=== PATIENT | female | born 1935 | race Caucasian/White ===

== ENCOUNTER 2016-05-13 12:27 | Emergency (ER) | payer OTHER, MEDICAID ==
[~2016-05-13] VITALS: Ht 154.9 cm; Wt 76.7 kg
[2016-05-13 12:48] VITALS: BP 155/76
[2016-05-13] MEDS ORDERED: GABAPENTIN300 M3 PO (12:55)
[2016-05-13] MEDS ORDERED: ASPIRIN ADULT L81 M1 PO (12:55)
[2016-05-13] MEDS ORDERED: NORVASC10 M1 PO (12:55)
[2016-05-13] MEDS ORDERED: PRILOSEC20 MG PO (12:55)
[2016-05-13] MEDS ORDERED: LASIX20 M1 PO (12:55)
[2016-05-13] MEDS ORDERED: LOTENSIN40 M1 PO (12:55)
[2016-05-13] MEDS ORDERED: ZESTRIL20 M2 PO (12:55)
--- NOTE | 2016-05-13 14:09 | NUR ---
Patient ambulated to bed 08.
--- NOTE | 2016-05-13 14:10 | NUR ---
80/F BIB FAMILY C/O ABDOMINAL PAIN X 3 DAYS. PT STATES HAS NAUSEA BUT DENIES DIARRHEA; SKIN IS PINK/WARM/DRY; AAOX4 WITH EVEN AND UNSTEADY GAIT; AMBULATES W/ WALKER; LUNGS CLEAR BL; HR EVEN AND REGULAR; PT DENIES ANY FEVER, CP, SOB, OR COUGH AT THIS TIME; PATIENT STATES PAIN OF 10/10 AT THIS TIME; PATIENT POSITIONED FOR COMFORT; HOB ELEVATED; BEDRAILS UP X2; BED DOWN. ER MD MADE AWARE OF PT STATUS.
--- NOTE | 2016-05-13 14:29 | NUR ---
Dr. Morrison evaluating patient at bedside.
[2016-05-13] MEDS ORDERED: NACL 0.9% 1,000 ML IV SCH (14:37)
[2016-05-13] MEDS ORDERED: MORPHINE SULFATE 2 MG/ML SYR IVP ONE (14:40)
[2016-05-13] MEDS ORDERED: ONDANSETRON 4 MG/2 ML VIAL IVP ONE (14:40)
--- NOTE | 2016-05-13 15:03 | NUR ---
Patient to CT via wheelchair per tech.
--- NOTE | 2016-05-13 15:28 | NUR ---
Patient back from CT/XRAY via wheelchair per tech.
--- NOTE | 2016-05-13 16:00 | NUR ---
IV removed, catheter intact and site benign. Applied folded 4x4 gauze and tape to stop bleeding.
[2016-05-13 16:39] VITALS: BP 132/83
--- NOTE | 2016-05-13 16:39 | NUR ---
Patient discharged with v/s stable. Written and verbal after care instructions given and explained. Patient alert, oriented and verbalized understanding of instructions. Ambulatory with WALKER. All questions addressed prior to discharge. ID band removed. Patient advised to follow up with PMD. Rx of MIRALAX & COLACE given. Patient educated on indication of medication including possible reaction and side effects. Opportunity to ask questions provided and answered.
== END 2016-05-13 15:28 | disposition home or self-care (01) ==
LOC: MED 12:27
DX: K80.20 Calculus of gallbladder without cholecystitis without obstruction (principal); K59.00 Constipation, unspecified; K57.90 Diverticulosis of intestine, part unspecified, without perforation or abscess without bleeding; K44.9 Diaphragmatic hernia without obstruction or gangrene; E11.9 Type 2 diabetes mellitus without complications; I12.9 Hypertensive chronic kidney disease with stage 1 through stage 4 chronic kidney disease, or unspecified chronic kidney disease; N18.9 Chronic kidney disease, unspecified; K21.9 Gastro-esophageal reflux disease without esophagitis; Z79.82 Long term (current) use of aspirin; Z79.899 Other long term (current) drug therapy
CPT/HCPCS: 36415; 71010; 74176; 80053; 81001; 82150; 82948; 83605; 83690; 84484; 85025; 85610; 85730; 87040; 87086; 93005; 96361; 96374; 96375; 99285; J2270; J2405; J7030

== ENCOUNTER 2016-10-27 17:15 | Inpatient (IN) | payer OTHER, MEDICAID ==
[~2016-10-27] VITALS: Ht 152.4 cm; Wt 90.7 kg
[~2016-10-27 17:15] MED LIST: AMLO10TA1 PO; ASPI81CT27 PO; BENA40TA PO; FURO-572 PO; GABA-638 PO; LISI20TA21 PO; OMEP20EC4 PO
[2016-10-27 17:35] VITALS: BP 134/69
[2016-10-27] MEDS ORDERED: OMEP20TC10 PO (17:47)
[2016-10-27] MEDS ORDERED: DOCU-67 PO (17:47)
[2016-10-27] MEDS ORDERED: FERR325E14 PO (17:47)
[2016-10-27] MEDS ORDERED: ATEN50TA8 PO (17:47)
--- NOTE | 2016-10-27 17:51 | NUR ---
GLUCOMETER NOT FUNCTIONING
--- NOTE | 2016-10-27 18:30 | NUR ---
PT WHEELCHAIR ASSISTED TO BED 3.
--- NOTE | 2016-10-27 18:34 | NUR ---
PATIENT PRESENTS TO ED POST FALL AT HOME THIS MORNING. ECCHYMOSIS AND SWELLING NOTED TO RIGHT SHOULDER. PER PT'S DAUGHTER, "SHE WAS GOING TO THE BATHROOM WITH HER WALKER AND SLIPPED." PT'S DAUGHTER STATES THAT HER DAUGHTER FOUND HER ON THE FLOOR BUT NO ONE WITNESSED THE FALL. PT C/O PAIN TO RIGHT SHOULER; DENIES N/V/D; SKIN IS PINK/WARM/DRY; AAOX4 WITH EVEN AND STEADY GAIT; LUNGS CLEAR BL; HR EVEN AND REGULAR; PT DENIES ANY FEVER, CP, SOB, OR COUGH AT THIS TIME; PATIENT STATES PAIN OF 10/10 AT THIS TIME; VSS; PATIENT POSITIONED FOR COMFORT; HOB ELEVATED; BEDRAILS UP X2; BED DOWN. ER MD MADE AWARE OF PT STATUS.
--- NOTE | 2016-10-27 18:46 | NUR ---
DR. COREA PRESENT AT BEDSIDE.
[2016-10-27] MEDS ORDERED: NACL 0.9% 1,000 ML IV ONE ×2 (18:53→19:27)
--- NOTE | 2016-10-27 19:27 | NUR ---
Dr. Eaton evaluating patient at bedside.
--- NOTE | 2016-10-27 19:29 | NUR ---
ENDORSED CARE TO BEVERLY OVIEDO. PT IN STABLE CONDITION.
[2016-10-27] MEDS ORDERED: MORPHINE SULFATE 4 MG/ML SYR IVP ONE (19:30)
[2016-10-27] MEDS ORDERED: ONDANSETRON 4 MG/2 ML VIAL IVP ONE (19:30)
--- NOTE | 2016-10-27 19:31 | NUR ---
FAMILY AT BEDSIDE. PT RESTING IN BED, BP ELEVATED, MED HX OF HTN. PT C/O PAIN 11/15 ON R SHOULDER. ER MD NOTIFIED.
[2016-10-27 20:14] LABS: BASOPHILS # (AUTO) 0.1 K/uL (0.00-0.22); BASOPHILS % (AUTO) 1.1 % (0.0-2.0); EOSINOPHILS # (AUTO) 0.3 K/uL (0-0.4); EOSINOPHILS % (AUTO) 2.3 % (0.0-4.0); HEMATOCRIT 33.5 % (36-48); LYMPHOCYTES # (AUTO) 1.6 K/uL (2.5-16.5); LYMPHOCYTES % (AUTO) 13.5 % (20.5-51.1); MEAN CORPUSCULAR HEMOGLOBIN 31 pg (27-31); MEAN CORPUSCULAR HGB CONC 33 g/dL (33-37); MEAN CORPUSCULAR VOLUME 93 fL (80-94); MONOCYTES # (AUTO) 0.9 K/uL (0.8-1.0); MONOCYTES % (AUTO) 7.1 % (1.7-9.3); NEUTROPHILS # (AUTO) 9.1 K/uL (1.8-7.7); PLATELET COUNT (AUTO) 297 K/uL (140-450); RED BLOOD CELL COUNT(AUTO) 3.59 MIL/uL (4.20-5.40); RED CELL DISTRIBUTION WIDTH 13.6 % (11.6-13.7)
[2016-10-27 20:28] LABS: ALBUMIN 2.1 g/dL (3.4-5.0); AMYLASE 23 U/L (25-115); ANION GAP 12.3 (8-16); ASPARTATE AMINOTRANSFERASE 45 U/L (15-37); CARBON DIOXIDE 26.1 mmol/L (21-32); CHLORIDE 114 mmol/L (98-107); GLUCOSE 99 mg/dL (74-106); LIPASE 81 U/L (73-393); POTASSIUM 5.4 mmol/L (3.5-5.1); PROTHROMBIN TIME 9.9 secs (10.8-13.4); SODIUM SERUM 147 mmol/L (136-145); TOTAL BILIRUBIN 0.6 mg/dL (0.0-1.0)
[2016-10-27 20:34] LABS: CREATININE 4.7 mg/dL (0.6-1.3); UREA NITROGEN, BLOOD 75 mg/dL (7-18)
[2016-10-27] MEDS ORDERED: SODIUM POLYSTYRENE 15 GM/60 ML UDBTL PO ONE (20:50)
[2016-10-27] MEDS ORDERED: cefTRIAXone 1,000 MG VIAL ONE (21:03)
[2016-10-27] MEDS ORDERED: ONDANSETRON 4 MG/2 ML VIAL IVP PRN (21:10)
--- NOTE | 2016-10-27 21:19 | NUR ---
Patient will be admitted to care of [facility]. Admited to TELEMETRY. Will go to room 110 B. Belongings list completed. Report to BEVERLY SERRANO..
[2016-10-27 21:20] LABS: APPEARANCE,URINE HAZY (CLEAR); BILIRUBIN,URINE NEGATIVE (NEGATIVE); BLOOD, URINE TRACE-I (NEGATIVE); COLOR,URINE YELLOW (YELLOW); LEUKOCYTE ESTERASE ,URINE NEGATIVE (NEGATIVE); NITRITE, URINE POSITIVE (NEGATIVE); UGLUCOSE NEGATIVE (NEGATIVE)
[2016-10-27 21:24] LABS: RBC,URINE 0-5 /HPF (0-5); WBC,URINE 20-40 /HPF (0-5)
--- NOTE | 2016-10-27 21:33 | NUR ---
PT TRANSFERED TO FLOOR VIA GURNEY ACCOMPANIED BY RN AND EMT.
--- NOTE | 2016-10-27 22:00 | NUR ---
PATIENT ADMITTED TO THE UNIT FROM ED VIA GURNEY. PATIENT TRANSFERRED FROM RFOWLER TO BED WITH FULL ASSIST. PATIENT IS AAOX2, UKRAINIAN SPEAKER, ON O2 3.5L VIA NC. IV TO RIGHT AC PATENT AND INTACT. SKIN INTACT WITH BRUISING TO RIGHT UPPER ARM S/P FALL. RIGHT ARM IN IMMOBILIZER. PATIENT APPEARS TO BE IN MILD PAIN. STATED THE MORPHINE IN THE ER HELPED HER PAIN. NOTED BILATERAL LOWER EXTREMITY EDEMA, NON PITTING. PATIENT STATED DISCOMFORT IN HER KNEES. ORIENTED PATIENT TO ROOM AND SURROUNDINGS, DISCUSSED PLAN OF CARE WITH PATIENT, PT VERBALIZED UNDERSTANDING. SAFETY MEASURES CHECKED, BED ALARM ON, FALL PRECAUTIONS IN PLACE, SIGNS POSTED, WRIST BANDS ON, CALL LIGHT WITHIN REACH. WILL CONTINUE TO MONITOR.
[2016-10-27] MEDS ORDERED: MECLIZINE 25 MG TAB PO PRN (22:15)
[2016-10-27] MEDS ORDERED: DEXTROSE 50% 50 ML SYR IVP PRN (22:15)
[2016-10-27] MEDS ORDERED: LACTULOSE 20 GM/30 ML UDC PO SCH (22:15)
[2016-10-27] MEDS: NACL 0.9% 1,000 ML IV SCH (22:25)
[2016-10-27 22:49] LABS: CHOL/HDL RATIO 3.7 (1-4.5); FREE T4 (FREE THYROXINE) 0.75 ng/dL (0.76-1.46); MAGNESIUM 2.4 mg/dL (1.8-2.4); PHOSPHORUS 4.9 mg/dL (2.5-4.9); THYROID STIMULATING HORMONE 6.48 uIU/mL (0.34-3.74)
--- NOTE | 2016-10-27 23:42 | NUR ---
PT OFF UNIT TO CT
[2016-10-28] VITALS: BP 155/88
[2016-10-28 00:36] LABS: ANION GAP 13.9 (8-16); CHLORIDE 115 mmol/L (98-107); GLUCOSE 114 mg/dL (74-106); POTASSIUM 4.9 mmol/L (3.5-5.1); SODIUM SERUM 148 mmol/L (136-145)
[2016-10-28 00:47] LABS: CREATININE 4.4 mg/dL (0.6-1.3); UREA NITROGEN, BLOOD 70 mg/dL (7-18)
--- NOTE | 2016-10-28 01:09 | NUR ---
PT SLEEPING, NO SIGN OF DISTRESS AT THIS TIME, CALL LIGHT WITHIN REACH. WILL CONTINUE TO MONITOR.
--- NOTE | 2016-10-28 03:30 | NUR ---
PATIENT SLEEPING COMFORTABLE, NO SOB OR SIGN OF DISTRESS AT THIS TIME, CALL LIGHT WITHIN REACH. WILL CONTINUE TO MONITOR.
[2016-10-28 04:00] VITALS: BP 142/73
--- NOTE | 2016-10-28 05:00 | NUR ---
PATIENT HAD LARGE SOFT BM. CLEANED PATIENT, TURNED AND REPOSITIONED. NO SIGN OF DISTRESS, CALL LIGHT WITHIN REACH. WILL CONTINUE TO MONITOR.
--- NOTE | 2016-10-28 05:19 | NUR ---
SCDS APPLIED TO PATIENT
--- NOTE | 2016-10-28 07:19 | NUR ---
ENDORSED PATIENT TO DAY RN AT BEDSIDE, PATIENT IN STABLE CONDITION
--- NOTE | 2016-10-28 07:20 | NUR ---
RECEIVED PT FROM MAGGIE PAUL AT BEDSIDE. PT IS SLEEPING. NC 3L. PT HAS IV ON L AC 20 G RUNNING NS@100. NO DISTRESS NOTED. PT HAS R ARM IMMOBILIZER. CALL LIGHT WITHIN REACH. WILL CONTINUE TO MONITOR.
[2016-10-28 08:00] VITALS: BP 141/78
[2016-10-28] MEDS: BLOOD GLUCOSE MONITORING 1 DEV DEV FS SCH ×4 (08:16→21:10)
[2016-10-28] MEDS: LACTOBACILLUS RHAMNOSUS GG 1 EACH CAP PO SCH (08:20)
[2016-10-28] MEDS: ATENOLOL 50 MG TAB PO SCH ×2 (08:21→21:11)
[2016-10-28] MEDS: FERROUS SULFATE 325 MG TABEC PO SCH (08:21)
[2016-10-28] MEDS: GABAPENTIN 100 MG CAP PO SCH (08:21)
[2016-10-28] MEDS: amLODIPine 5 MG TAB PO SCH (08:21)
[2016-10-28] MEDS: DOCUSATE SODIUM 100 MG GELCAP PO SCH ×2 (08:22→21:11)
--- NOTE | 2016-10-28 08:30 | NUR ---
US TECH AT BEDSIDE PERFORMING TEST. PT TOLERATING WELL. CALL LIGHT WITHIN REACH. WILL CONTINUE TO MONITOR.
[2016-10-28] MEDS: NACL 0.9% 1,000 ML IV SCH ×2 (08:40→19:30)
[2016-10-28] MEDS ORDERED: ASPIRIN 81 MG TAB.CHEW PO SCH (09:00)
[2016-10-28] MEDS ORDERED: PANTOPRAZOLE 40 MG INJ VIAL IVP SCH (09:00)
[2016-10-28] MEDS ORDERED: FUROSEMIDE 20 MG TAB PO SCH (09:00)
[2016-10-28] MEDS ORDERED: ECOTRIN 81 MG TABEC PO SCH (09:00)
[2016-10-28] MEDS ORDERED: DOCUSATE SODIUM 100 MG GELCAP PO SCH (09:00)
--- NOTE | 2016-10-28 09:03 | NUR ---
PATIENT HAS BEEN SCREENED AND CATEGORIZED HIGH NUTRITION RISK. PATIENT WILL BE SEEN WITHIN 1-2 DAYS OF ADMISSION. 10/28/16-10/29/[address]
--- NOTE | 2016-10-28 09:10 | NUR ---
PULLED PT UP IN BED. PT TOLERATED MORNING MEDS WELL. MANAGER HIGHWAY HELPED PT TO EAT. CALL LIGHT WITHIN REACH. WILL CONTINUE TO MONITOR.
--- NOTE | 2016-10-28 10:44 | NUR ---
PT RESTING COMFORTABLY IN BED. NO DISTRESS NOTED. CALL LIGHT WITHIN REACH. WILL CONTINUE TO MONITOR.
[2016-10-28 11:08] LABS: HEMATOCRIT 28.6 % (36-48); HEMOGLOBIN 9.1 g/dL (12.0-16.0); MEAN CORPUSCULAR HEMOGLOBIN 30 pg (27-31); MEAN CORPUSCULAR HGB CONC 32 g/dL (33-37); MEAN CORPUSCULAR VOLUME 94 fL (80-94); PLATELET COUNT (AUTO) 200 K/uL (140-450); RED BLOOD CELL COUNT(AUTO) 3.03 MIL/uL (4.20-5.40); RED CELL DISTRIBUTION WIDTH 13.4 % (11.6-13.7); WHITE BLOOD COUNT (AUTO) 13.2 K/uL (4.8-10.8)
[2016-10-28 11:17] LABS: ANION GAP 12.5 (8-16); CARBON DIOXIDE 23.3 mmol/L (21-32); CHLORIDE 117 mmol/L (98-107); GLUCOSE 160 mg/dL (74-106); POTASSIUM 4.8 mmol/L (3.5-5.1); SODIUM SERUM 148 mmol/L (136-145)
[2016-10-28 11:20] LABS: EOSINOPHILS % (MANUAL) 2 % (0-4); LYMPHOCYTES % (MANUAL) 8 % (20-46); MONOCYTES % (MANUAL) 4 % (5-12); UREA NITROGEN, BLOOD 65 mg/dL (7-18)
[2016-10-28 11:21] LABS: CREATININE 4.1 mg/dL (0.6-1.3)
[2016-10-28 11:45] LABS: MAGNESIUM 2.2 mg/dL (1.8-2.4); PHOSPHORUS 5.5 mg/dL (2.5-4.9)
[2016-10-28 12:00] VITALS: BP 143/57
[2016-10-28] MEDS: INSULIN LISPRO SLIDING SCALE 100 UNITS/ML VIAL SUBQ PRN (12:09)
--- NOTE | 2016-10-28 12:56 | NUR ---
ANSWERED FAMILY'S QUESTION AT BEDSIDE. PT IN STABLE CONDITION. CALL LIGHT WITHIN REACH. WILL CONTINUE TO MONITOR.
--- NOTE | 2016-10-28 14:21 | NUR ---
FAMILY AT BEDSIDE. PT IN STABLE CONDITION. CALL LIGHT WITHIN REACH. WILL CONTINUE TO MONITOR.
--- NOTE | 2016-10-28 14:40 | NUR ---
10/28/16 RD INITIAL ASSESSMENT COMPLETED PLEASE REFER TO NUTRITION ASSESSMENT UNDER CARE ACTIVITY FOR ESTIMATED NUTRITIONAL NEEDS. 1. CONTINUE 60 GM CONSISTENT CARBOHYDRATE DIET 2. RD TO FOLLOW UP WITHIN 3-5 DAYS; MODERATE RISK WENDY LAM RD
[2016-10-28] MEDS: ACETAMINOPHEN 325 MG TAB PO PRN (15:44)
[2016-10-28 16:00] VITALS: BP 143/67
--- NOTE | 2016-10-28 16:00 | NUR ---
VS TAKEN. NO DISTRESS NOTED IN PT. CALL LIGHT WITHIN REACH. WILL CONTINUE TO MONITOR.
--- NOTE | 2016-10-28 17:30 | NUR ---
FAMILY AT BEDSIDE. NO DISTRESS NOTED IN PT. CALL LIGHT WITHIN REACH. WILL CONTINUE TO MONITOR.
--- NOTE | 2016-10-28 19:16 | NUR ---
ENDORSED CARE OF PT TO ALFONSO RN AT BEDSIDE. PT IN STABLE CONDITION.
--- NOTE | 2016-10-28 19:20 | NUR ---
RECEIVED REPORT FROM AM NURSE. PT IS STABLE, SLEEPING AT THIS TIME WITH FAMILY AT BEDSIDE. TELE PT, ROOM AIR. IV ACCESS ON LEFT AC 20G RUNNING FLUIDS AT 100ML/HR. ARM SLING ON RIGHT ARM. PLAN OF CARE DISCUSSED WITH FAMILY AND PT, BOTH VERBALIZED UNDERSTANDING. BED ON LOW POSITION, CALL LIGHT WITHIN REACH. WILL CONTINUE TO MONITOR. Addendum: 10/28/16 at 2244 by Jennifer Gross RN PT IS ON 02 3L NC
--- NOTE | 2016-10-28 19:50 | NUR ---
US ABDOMEN DONE AT BEDSIDE. WILL FOLLOW UP RESULT.
[2016-10-28 20:00] VITALS: BP 120/53
--- NOTE | 2016-10-28 22:00 | NUR ---
VOIDED WITH MODERATE AMOUNT. CLEANED AND KEPT DRY. REPOSITIONED FOR COMFORT. WILL CONTINUE TO MONITOR.
[2016-10-29 00:10] VITALS: BP 147/64
[2016-10-29] MEDS: ACETAMINOPHEN 325 MG TAB PO PRN ×2 (00:26→16:08)
--- NOTE | 2016-10-29 00:26 | NUR ---
TEMP 100.5 COOLING MEASURES DONE. TYLENOL 650 MG PO GIVEN. WILL CONTINUE TO MONITOR.
[2016-10-29] MEDS: NACL 0.9% 1,000 ML IV SCH ×2 (00:31→12:19)
--- NOTE | 2016-10-29 01:30 | NUR ---
PT SLEEPING . LATEST TEMP 98.8 WILL CONTINUE TO MONITOR.
--- NOTE | 2016-10-29 02:22 | NUR ---
MADE ROUNDS. PT IS SLEEPING SHOWING NO S/S OF DISCOMFORT. WILL CONTINUE O MONITOR.
[2016-10-29 03:35] VITALS: BP 140/53
--- NOTE | 2016-10-29 04:59 | NUR ---
MADE ROUNDS. PT IS SLEEPING, SHOWING NO S/S OF DISCOMFORT. WILL CONTINUE TO MONITOR.
[2016-10-29 07:15] LABS: BASOPHILS # (AUTO) 0.1 K/uL (0.00-0.22); BASOPHILS % (AUTO) 1.1 % (0.0-2.0); EOSINOPHILS # (AUTO) 0.4 K/uL (0-0.4); EOSINOPHILS % (AUTO) 3.8 % (0.0-4.0); HEMATOCRIT 25.8 % (36-48); HEMOGLOBIN 8.5 g/dL (12.0-16.0); LYMPHOCYTES % (AUTO) 17.5 % (20.5-51.1); MEAN CORPUSCULAR HEMOGLOBIN 31 pg (27-31); MEAN CORPUSCULAR HGB CONC 33 g/dL (33-37); MEAN CORPUSCULAR VOLUME 94 fL (80-94); MONOCYTES # (AUTO) 1.1 K/uL (0.8-1.0); MONOCYTES % (AUTO) 9.9 % (1.7-9.3); NEUTROPHILS % (AUTO) 67.7 % (42.2-75.2); PLATELET COUNT (AUTO) 208 K/uL (140-450); RED BLOOD CELL COUNT(AUTO) 2.74 MIL/uL (4.20-5.40); RED CELL DISTRIBUTION WIDTH 13.3 % (11.6-13.7)
--- NOTE | 2016-10-29 07:22 | NUR ---
RECEIVED PT FROM ALFONSO RN AT BEDSIDE. PT IS A&OX2. PT HAS IV ON L WRIST 22 G RUNNING NS@100. PT HAS R HUMERAL NECK FRACTURE, R ARM IMMOBILIZER IN PLACE. SCDS IN PLACE. NO DISTRESS NOTED IN PT. CALL LIGHT WITHIN REACH. WILL CONTINUE TO MONITOR.
[2016-10-29] MEDS: BLOOD GLUCOSE MONITORING 1 DEV DEV FS SCH ×4 (07:30→21:00)
[2016-10-29 07:49] LABS: WHITE BLOOD COUNT (AUTO) 11.6 K/uL (4.8-10.8)
[2016-10-29 08:00] VITALS: BP 148/67
[2016-10-29 08:01] LABS: MAGNESIUM 1.7 mg/dL (1.8-2.4)
[2016-10-29] MEDS: ATORVASTATIN 20 MG TAB PO SCH (08:37)
[2016-10-29] MEDS: LACTOBACILLUS RHAMNOSUS GG 1 EACH CAP PO SCH (08:37)
[2016-10-29] MEDS: GABAPENTIN 100 MG CAP PO SCH (08:37)
[2016-10-29] MEDS: FERROUS SULFATE 325 MG TABEC PO SCH (08:37)
[2016-10-29] MEDS: PANTOPRAZOLE 40 MG TABEC PO SCH (08:38)
[2016-10-29] MEDS: ATENOLOL 50 MG TAB PO SCH ×2 (08:38→22:22)
[2016-10-29] MEDS: ECOTRIN 81 MG TABEC PO SCH (08:38)
[2016-10-29] MEDS: DOCUSATE SODIUM 100 MG GELCAP PO SCH ×2 (08:38→22:23)
[2016-10-29] MEDS: amLODIPine 5 MG TAB PO SCH (08:38)
[2016-10-29] MEDS ORDERED: CALCIUM ACETATE 667 MG TAB PO SCH (09:18)
[2016-10-29 09:32] LABS: ANION GAP 10.8 (8-16); CARBON DIOXIDE 22.1 mmol/L (21-32); CHLORIDE 114 mmol/L (98-107); CREATININE 3.8 mg/dL (0.6-1.3); GLUCOSE 107 mg/dL (74-106); POTASSIUM 3.9 mmol/L (3.5-5.1); SODIUM SERUM 143 mmol/L (136-145); UREA NITROGEN, BLOOD 60 mg/dL (7-18)
[2016-10-29] MEDS: CLINICAL MONITORING MC SCH (09:38)
[2016-10-29] MEDS: HYDROcodone/APAP 7.5/325 MG 1 TAB PO PRN (09:53)
--- NOTE | 2016-10-29 09:53 | NUR ---
PHYSICAL THERAPY WORKED WITH PT. PUT PT BACK TO BED. PT C/O R SHOULDER PAIN. MEDICATED. TOLERATED WELL. CALL LIGHT WITHIN REACH. WILL CONTINUE TO MONITOR.
[2016-10-29 10:17] LABS: FERRITIN 114 ng/mL (15-150); FOLIC ACID > 20.00 ng/mL (>3.0)
--- NOTE | 2016-10-29 11:00 | NUR ---
SPOKE TO DR. WAN REGARDING MAG 1.7.
[2016-10-29 11:11] LABS: TRANSFERRIN 161 mg/dL (200-370)
[2016-10-29 12:00] VITALS: BP 144/49
[2016-10-29] MEDS ORDERED: MAGNESIUM OXIDE 400 MG TAB PO SCH (12:45)
--- NOTE | 2016-10-29 13:00 | NUR ---
PT PULLED OUT OLD IV, CANNULA INTACT. REINSERTED NEW IV 22 G ON L WRIST. PT TOLERATED WELL. CALL LIGHT WITHIN REACH. WILL CONTINUE TO MONITOR.
--- NOTE | 2016-10-29 15:30 | NUR ---
NO DISTRESS NOTED AT THIS TIME. VS STABLE. WILL MONITOR CLOSELY. CALL LIGHT WITHIN REACH.
[2016-10-29 16:00] VITALS: BP 147/57
--- NOTE | 2016-10-29 16:08 | NUR ---
PAIN REQUESTED TYLENOL FOR PAIN. ADMINISTERED. TOLERATED WELL. CALL LIGHT WITHIN REACH. WILL CONTINUE TO MONITOR.
--- NOTE | 2016-10-29 17:00 | NUR ---
PT REFUSED US KIDNEY.
--- NOTE | 2016-10-29 18:00 | NUR ---
I&O INTAKE ORAL: 1200 ML INTAKE IV: 800 ML VOID: 2X BM: NONE
--- NOTE | 2016-10-29 19:20 | NUR ---
ENDORSED CARE OF PT TO FRONT LOADER RESIDENTIAL DRIVER NURSE AT BEDSIDE. PT IN STABLE CONDITION.
--- NOTE | 2016-10-29 19:25 | NUR ---
RECEIVED PT FROM RAFFAELE PAUL PT IS AAOX2 GRENADIAN SPEAKER IV ON LEFT WRIST INSUING WELL ON TELEMETRY SR BBB RT UPPER ARM TUBEROSITY FRACTURE REMAIN STABLE AT THIS TIME DENIES ANY PAIN INITIAL ASSESSMENT DONE
[2016-10-29 20:00] VITALS: BP 142/55
--- NOTE | 2016-10-29 21:30 | NUR ---
BLOOD SUGAR TEST 142
--- NOTE | 2016-10-29 22:00 | NUR ---
PT IS ASSISTED WITH BED WHITMAN VOIDING WELL ON TELE SR BBB
[2016-10-30] VITALS: BP 150/66
--- NOTE | 2016-10-30 01:20 | NUR ---
PT SLEEPING NOT DISTRESS NOTED IV ON LEFT WRIST INFUSING WELL
[2016-10-30 04:00] VITALS: BP 150/81
--- NOTE | 2016-10-30 04:00 | NUR ---
sponge bath given linen changed repositioned q2h on telemetry sr bbb
[2016-10-30 05:59] LABS: BASOPHILS # (AUTO) 0.1 K/uL (0.00-0.22); BASOPHILS % (AUTO) 0.8 % (0.0-2.0); EOSINOPHILS # (AUTO) 0.6 K/uL (0-0.4); EOSINOPHILS % (AUTO) 4.5 % (0.0-4.0); HEMOGLOBIN 9.1 g/dL (12.0-16.0); LYMPHOCYTES # (AUTO) 1.6 K/uL (2.5-16.5); LYMPHOCYTES % (AUTO) 12.4 % (20.5-51.1); MEAN CORPUSCULAR HEMOGLOBIN 30 pg (27-31); MEAN CORPUSCULAR HGB CONC 32 g/dL (33-37); MEAN CORPUSCULAR VOLUME 94 fL (80-94); MONOCYTES # (AUTO) 0.9 K/uL (0.8-1.0); MONOCYTES % (AUTO) 7.2 % (1.7-9.3); NEUTROPHILS # (AUTO) 9.4 K/uL (1.8-7.7); NEUTROPHILS % (AUTO) 75.1 % (42.2-75.2); PLATELET COUNT (AUTO) 237 K/uL (140-450); RED CELL DISTRIBUTION WIDTH 12.8 % (11.6-13.7); WHITE BLOOD COUNT (AUTO) 12.6 K/uL (4.8-10.8)
[2016-10-30] MEDS: NACL 0.9% 1,000 ML IV SCH ×3 (06:07→16:05)
[2016-10-30 06:14] LABS: ANION GAP 14.7 (8-16); CARBON DIOXIDE 20.5 mmol/L (21-32); CHLORIDE 114 mmol/L (98-107); CREATININE 3.3 mg/dL (0.6-1.3); GLUCOSE 116 mg/dL (74-106); POTASSIUM 4.2 mmol/L (3.5-5.1); SODIUM SERUM 145 mmol/L (136-145); UREA NITROGEN, BLOOD 48 mg/dL (7-18)
[2016-10-30 06:22] LABS: MAGNESIUM 1.9 mg/dL (1.8-2.4); PHOSPHORUS 4.8 mg/dL (2.5-4.9)
--- NOTE | 2016-10-30 06:30 | NUR ---
blood sugar test 114
[2016-10-30] MEDS: BLOOD GLUCOSE MONITORING 1 DEV DEV FS SCH ×4 (07:21→20:34)
--- NOTE | 2016-10-30 07:35 | NUR ---
PT AWAKE AND ALERT, NO SIGNS OF ACUTE DISTRESS. SLOVENIAN SPEAKING. BOWEL SOUNDS ACTIVE IN ALL 4 QUADRANTS. BOWEL AND BLADDER CONTINENCE, PT USES BEDPAN. BEDBOUND. SKIN INTACT. IV PATENT AND ASYMPTOMATIC. RE-ORIENTED PATIENT TO HOSPITAL AND TO UNIT, PT UNABLE TO COMPREHEND. BED IN LOW POSITION, BED ALARM ON, WITH BILATERAL HALF SIDE RAILS UP. NO COMPLAINT OF PAIN AT THIS TIME, WILL CONTINUE TO MONITOR. Addendum: 10/30/16 at 0757 by Richa Herr RN RECEIVED REPORT FROM ASSISTANT FOREMAN RN. PT AWAKE AND ALERT, NO SIGNS OF ACUTE DISTRESS. SLOVENIAN SPEAKING. BOWEL SOUNDS ACTIVE IN ALL 4 QUADRANTS. BOWEL AND BLADDER CONTINENCE, PT USES BEDPAN. BEDBOUND. SKIN INTACT. IV PATENT AND ASYMPTOMATIC. RE-ORIENTED PATIENT TO HOSPITAL AND TO UNIT, PT UNABLE TO COMPREHEND. BED IN LOW POSITION, BED ALARM ON, WITH BILATERAL HALF SIDE RAILS UP. NO COMPLAINT OF PAIN AT THIS TIME, WILL CONTINUE TO MONITOR.
[2016-10-30 08:00] VITALS: BP 162/70
[2016-10-30] MEDS ORDERED: CALCIUM ACETATE 667 MG TAB PO SCH (08:00)
--- NOTE | 2016-10-30 08:15 | NUR ---
DR AMADOR AT PATIENT BEDSIDE. NO NEW ORDERS AT THIS TIME. WILL CONTINUE TO MONITOR.
[2016-10-30] MEDS: CALCIUM ACETATE 667 MG TAB PO SCH (08:18)
[2016-10-30] MEDS: LACTOBACILLUS RHAMNOSUS GG 1 EACH CAP PO SCH (08:19)
[2016-10-30] MEDS: ECOTRIN 81 MG TABEC PO SCH (08:19)
[2016-10-30] MEDS: GABAPENTIN 100 MG CAP PO SCH (08:19)
[2016-10-30] MEDS: FERROUS SULFATE 325 MG TABEC PO SCH (08:19)
[2016-10-30] MEDS: amLODIPine 5 MG TAB PO SCH (08:20)
[2016-10-30] MEDS: PANTOPRAZOLE 40 MG TABEC PO SCH (08:20)
[2016-10-30] MEDS: DOCUSATE SODIUM 100 MG GELCAP PO SCH ×2 (08:20→20:34)
[2016-10-30] MEDS: ATENOLOL 50 MG TAB PO SCH ×2 (08:20→20:34)
[2016-10-30] MEDS: ATORVASTATIN 20 MG TAB PO SCH (08:20)
[2016-10-30] MEDS: CLINICAL MONITORING MC SCH (08:25)
--- NOTE | 2016-10-30 08:41 | NUR ---
RECEIVED NEW SS ORDER FOR SNF PLACEMENT FOR PT. NOTED, WILL CARRY OUT.
--- NOTE | 2016-10-30 08:43 | NUR ---
10/30/16 RD FOLLOW-UP ASSESSMENT COMPLETED PLEASE REFER TO NUTRITION ASSESSMENT UNDER CARE ACTIVITY FOR ESTIMATED NUTRITIONAL NEEDS. 1. CONTINUE 60G CONSISTENT CARBOHYDRATE DIET 2. RD TO FOLLOW-UP 3-5 DAYS, MODERATE RISK WENDY LAM RD
[2016-10-30] MEDS ORDERED: CLINICAL MONITORING MC PRN (09:00)
--- NOTE | 2016-10-30 09:05 | NUR ---
Social Service Note: I called and spoke with patient's daughter Deirdre Ortiz . I explained to her MD's order for short term snf placement for physical therapy. Per Deirdre, she and/or her sister Bobbi will tour snfs today. She stated she will call me back and provide me with their snf preference no later than 1pm today, case resolution specialist Cecile nguyen.
--- NOTE | 2016-10-30 10:30 | NUR ---
PT SLEEPING COMFORTABLY IN BED, NO SIGNS OF ACUTE DISTRESS. BED IN LOW POSITION WITH BED ALARM ON, BILATERAL HALF SIDE RAILS UP, CALL LIGHT WITHIN REACH. WILL CONTINUE TO MONITOR.
[2016-10-30] MEDS: INSULIN LISPRO SLIDING SCALE 100 UNITS/ML VIAL SUBQ PRN (11:58)
[2016-10-30 12:00] VITALS: BP 142/60
--- NOTE | 2016-10-30 12:07 | NUR ---
PT SITTING UPRIGHT IN BED EATING LUNCH, NO SIGNS OF ACUTE DISTRESS. BED IN LOW POSITION WITH BED ALARM ON, BILATERAL HALF SIDE RAILS UP, CALL LIGHT WITHIN REACH. WILL CONTINUE TO MONITOR.
--- NOTE | 2016-10-30 13:17 | NUR ---
I CALLED THE DAUGHTER, NEAL GARDNER. SHE SAID FOR A SNF, FAX INFORMATION TO [facility] IN [place]. CALLED [facility] AND FAXED THE INFORMATION TO [phone]. PHONE FOR [facility] IS [phone]. [phone] [facility] [id number]. I ALSO INFORMED HER THAT SINCE IT IS FAMILY REQUEST FOR THE PATIENT TO GO TO [place], THEY WILL PROBABLY HAVE TO PAY FOR THE TRANSPORT.
--- NOTE | 2016-10-30 14:30 | NUR ---
PT RESTING COMFORTABLY IN BED, NO SIGNS OF ACUTE DISTRESS. BED IN LOW POSITION WITH BILATERAL HALF SIDE RAILS UP, CALL LIGHT WITHIN REACH, BED ALARM ON. WILL CONTINUE TO MONITOR.
--- NOTE | 2016-10-30 15:05 | NUR ---
SANGEETA,AUTOMOTIVE GLASS SPECIALIST, RECEIVED A CALL FROM UCHE FROM [facility]. THEY WILL ACCEPT THE PATIENT. SHE WILL GO TO ROOM 107A UNDER DR. LA NENA MCWILLIAMS WHEN DISCHARGED. CALL REPORT TO [phone], AND ASK FOR [employer] FOR SMALL BUSINESS CONSULTANT AT X [phone]. I CALLED [facility], SINCE PATIENT HAS [employer] SECONDAY. I SPOKE WITH SHILO AND HE SAID SHE DOES HAS TRANSPORT COVERAGE. THEY CANNOT DO WILL CALL. FOR TRANSPORT CALL [facility] TO SET UP TRANSPORT WHEN PATIENT DISCHARGE AT [phone]. I CALLED DAUGHTER NEAL AND LEFT A MESSAGE ABOUT THE SNF ON HER ANSWERING MACHINE,. NO CALL BACK.
[2016-10-30 16:00] VITALS: BP 146/65
--- NOTE | 2016-10-30 16:00 | NUR ---
PT COMPLAINING OF PAIN 10/10 IN RT ARM, WILL MEDICATE. BED IN LOW POSITION WITH BILATERAL HALF SIDE RAILS UP, BED ALARM ON, CALL LIGHT WITHIN REACH. WILL CONTINUE TO MONITOR.
[2016-10-30] MEDS: HYDROcodone/APAP 7.5/325 MG 1 TAB PO PRN ×2 (16:09→22:36)
--- NOTE | 2016-10-30 17:00 | NUR ---
PT SLEEPING, DAUGHTER AT BEDSIDE, NO SIGNS OF ACUTE DISTRESS. BED IN LOW POSITION WITH BILATERAL HALF SIDE RAILS UP, BED ALARM ON, CALL LIGHT WITHIN REACH. WILL CONTINUE TO MONITOR.
--- NOTE | 2016-10-30 19:25 | NUR ---
PT AWAKE AND ALERT, NO SIGNS OF ACUTE DISTRESS. ENDORSED TO BICYCLE REPAIRER NURSE FOR CONTINUITY OF CARE.
--- NOTE | 2016-10-30 19:26 | NUR ---
RECEIVED REPORT FROM DAY RN FOR CONTINUITY OF CARE. PATIENT IS ALERT AND ORIENTED X2, CONFUSED, REORIENTED PATIENT TO ENVIRONMENT. SHIFT ASSESSMENT DONE, ELEVATED BP NOTED WILL ADMINISTERED BP MEDS PER MD ORDER, ALL OTHER VS STABLE. NO RESPIRATORY DISTRESS NOTED ON 3L NC. NO S/SX OF PAIN. IV TO LT WRIST PATENT AND INFUSING FLUIDS WELL. PATIENT HAS SLING TO RT ARM NOTED. BLE EDEMA NOTED, NON PITTING. SAFETY PRECAUTIONS ENFORCED, BED IN LOWEST POSITION AND BED ALARM CHECKED. CALL LIGHT WITHIN REACH. WILL CONTINUE TO MONITOR FREQUENTLY.
[2016-10-30 20:00] VITALS: BP 150/77
--- NOTE | 2016-10-30 20:34 | NUR ---
DUE MEDICATIONS ADMINISTERED, TOLERATED WELL. PATIENT CONFUSED, REORIENTED PATIENT TO ROOM AND ENVIRONMENT, PATIENT STILL STATES IN JAPANESE, "THIS IS NOT A HOSPITAL, I AM AT HOME." SAFETY MEASURES ENFORCED, BED IN LOWEST POSITION AND BED ALARM ON, WILL CONTINUE TO MONITOR.
--- NOTE | 2016-10-30 22:36 | NUR ---
PATIENT IS AGITATED AND CONFUSED, ATTEMPTED TO MEDICATE PATIENT FOR PAIN, PATIENT SPIT OUT PILL AND STATES IN AZERI, "I DON'T WANT TO TAKE ANYTHING, I'M AT HOME." ATTEMPTING TO HIT AND KICK AT STAFF. WILL CONTINUE TO MONITOR.
[2016-10-30] MEDS ORDERED: LORazepam 2 MG/ML VIAL IVP PRN ×2 (22:50→23:25)
[2016-10-30] MEDS ORDERED: ALBUTEROL SULFATE/IPRATROPIU 3 ML SOL IH PRN (22:55)
--- NOTE | 2016-10-30 22:55 | NUR ---
PATIENT YELLING AND AGITATED, THROWING TELE BOX AT STAFF, REMOVING SLING FROM ARM AND REMOVING OXYGEN. CHECKED O2 SAT, RANGING BETWEEN 78-88%. PAGED DR. GIBSON AND INFORMED HER. IN TO SEE PATIENT AND INPUT ORDERS. AWARE OF O2 SAT AND STATES, "OK TO GIVE ATIVAN AND APPLY MITTENS." MD ALSO TO ORDER RT FOR LOW O2 SATURATION.
--- NOTE | 2016-10-30 23:10 | NUR ---
ADMINISTERED ATIVAN PER MD ORDER, INFORMED DR. GIBSON OF CURRENT VITALS. WILL CONTINUE TO MONITOR FREQUENTLY.
[2016-10-30] MEDS ORDERED: ALBUTEROL SULFATE/IPRATROPIU 3 ML SOL IH ONE (23:14)
--- NOTE | 2016-10-30 23:30 | NUR ---
PATIENT UNABLE TO COOPERATE TO DO INCENTIVE SPIROMETER.
[2016-10-31] VITALS: BP 107/52
--- NOTE | 2016-10-31 00:10 | NUR ---
PATIENT SLEEPING AT THIS TIME, NO DISTRESS OR AGITATION NOTED. WILL CONTINUE TO MONITOR.
--- NOTE | 2016-10-31 02:15 | NUR ---
PATIENT SLEEPING AT THIS TIME, NO DISTRESS OR DISCOMFORT NOTED. O2 SAT AT 93%, HR 85. SAFETY PRECAUTIONS ENFORCED, WILL CONTINUE TO MONITOR.
[2016-10-31] MEDS ORDERED: LABETALOL 100 MG TAB PO ONE (03:55)
[2016-10-31 04:00] VITALS: BP 181/71
--- NOTE | 2016-10-31 04:00 | NUR ---
VITAL SIGNS TAKEN, ELEVATED BP NOTED, INFORMED DR. KATBAMNA. JONES TO PUT IN ORDERS.
--- NOTE | 2016-10-31 04:23 | NUR ---
RECHECKED BP NOW DOWN TO 161/78, PER MD "OK TO MONITOR BLOOD PRESSURE PATIENTS BASELINE IS NORMALLY AROUND THAT RANGE." WILL CONTINUE TO MONITOR.
[2016-10-31 04:25] VITALS: BP 161/78
--- NOTE | 2016-10-31 05:43 | NUR ---
BLOOD SUGAR TAKEN, 112, NO INSULIN COVERAGE NEEDED AT THIS TIME. PATIENT ASLEEP, EASILY AWAKENS. WILL CONTINUE TO MONITOR.
[2016-10-31 06:02] LABS: BASOPHILS # (AUTO) 0.1 K/uL (0.00-0.22); BASOPHILS % (AUTO) 0.7 % (0.0-2.0); EOSINOPHILS # (AUTO) 0.5 K/uL (0-0.4); EOSINOPHILS % (AUTO) 3.9 % (0.0-4.0); HEMOGLOBIN 9.1 g/dL (12.0-16.0); LYMPHOCYTES # (AUTO) 1.3 K/uL (2.5-16.5); LYMPHOCYTES % (AUTO) 10.8 % (20.5-51.1); MEAN CORPUSCULAR HEMOGLOBIN 30 pg (27-31); MEAN CORPUSCULAR HGB CONC 33 g/dL (33-37); MEAN CORPUSCULAR VOLUME 93 fL (80-94); MONOCYTES % (AUTO) 8.6 % (1.7-9.3); NEUTROPHILS # (AUTO) 8.9 K/uL (1.8-7.7); PLATELET COUNT (AUTO) 256 K/uL (140-450); RED BLOOD CELL COUNT(AUTO) 3.01 MIL/uL (4.20-5.40); WHITE BLOOD COUNT (AUTO) 11.8 K/uL (4.8-10.8)
[2016-10-31] MEDS: BLOOD GLUCOSE MONITORING 1 DEV DEV FS SCH ×3 (06:17→16:30)
[2016-10-31 06:25] LABS: ANION GAP 15.7 (8-16); CARBON DIOXIDE 21.4 mmol/L (21-32); CHLORIDE 114 mmol/L (98-107); GLUCOSE 119 mg/dL (74-106); POTASSIUM 4.1 mmol/L (3.5-5.1); SODIUM SERUM 147 mmol/L (136-145); UREA NITROGEN, BLOOD 41 mg/dL (7-18)
[2016-10-31 06:33] LABS: MAGNESIUM 1.8 mg/dL (1.8-2.4); PHOSPHORUS 4.1 mg/dL (2.5-4.9)
--- NOTE | 2016-10-31 07:25 | NUR ---
ENDORSED PATIENT TO DAY RN FOR CONTINUITY OF CARE, PATIENT IS IN STABLE CONDITION.
--- NOTE | 2016-10-31 07:30 | NUR ---
RECEIVED REPORT FROM BEVERLY PRUITT. PT IS LAYING IN BED, PT IS A/OX1, CONFUSED, BEDREST, PT IS ON O2 2L NC, PT HAS RIGHT ARM SLING, PT HAS A LEFT WRIST IV, PATENT, INTACT, FLUSHING WELL, PT HAS BILATERAL LOWER EXT. EDEMA, SAFETY/FALL PRECAUTIONS ARE IN PLACE, DISCUSSED PLAN OF CARE WITH PT, PT UNABLE TO COMPREHEND, CALL LIGHT IS WITHIN REACH, WILL CONTINUE TO MONITOR.
[2016-10-31] MEDS: ALBUTEROL SULFATE/IPRATROPIU 3 ML SOL IH SCH ×2 (07:54→12:54)
[2016-10-31 08:00] VITALS: BP 155/73
[2016-10-31] MEDS: ECOTRIN 81 MG TABEC PO SCH (08:45)
[2016-10-31] MEDS: FERROUS SULFATE 325 MG TABEC PO SCH (08:45)
[2016-10-31] MEDS: CALCIUM ACETATE 667 MG TAB PO SCH (08:45)
[2016-10-31] MEDS: PANTOPRAZOLE 40 MG TABEC PO SCH (08:45)
--- NOTE | 2016-10-31 08:45 | NUR ---
DUE MEDICATIONS GIVEN, PT TOLERATED WELL, CALL LIGHT WITHIN REACH, WILL CONTINUE TO MONITOR.
[2016-10-31] MEDS: LACTOBACILLUS RHAMNOSUS GG 1 EACH CAP PO SCH (08:46)
[2016-10-31] MEDS: GABAPENTIN 100 MG CAP PO SCH (08:46)
[2016-10-31] MEDS: DOCUSATE SODIUM 100 MG GELCAP PO SCH (08:46)
[2016-10-31] MEDS: ATORVASTATIN 20 MG TAB PO SCH (08:46)
[2016-10-31] MEDS: ATENOLOL 50 MG TAB PO SCH (09:04)
[2016-10-31] MEDS: amLODIPine 5 MG TAB PO SCH (09:05)
--- NOTE | 2016-10-31 10:36 | NUR ---
PT IS SLEEPING IN BED AT THIS TIME, CALL LIGHT IS WITHIN REACH.
[2016-10-31] MEDS ORDERED: NITR100C7 PO (11:47)
[2016-10-31] MEDS ORDERED: ATOR20TA40 PO (11:47)
[2016-10-31 12:00] VITALS: BP 146/62
--- NOTE | 2016-10-31 12:07 | NUR ---
CALLED [facility] AND SPOKE TO [facility] #[phone] FOR TRANSPORTATION AND INSTRUMENTATION DESIGNER WILL BE 3 PM.
--- NOTE | 2016-10-31 12:53 | NUR ---
WASTE WATER OPERATOR IS AT BEDSIDE WORKING ON PT, PATIENT'S DAUGHTER IS ALSO AT BEDSIDE.
[2016-10-31] MEDS: ACETAMINOPHEN 325 MG TAB PO PRN (12:54)
--- NOTE | 2016-10-31 13:49 | NUR ---
DR. RODRIGUEZ IS AT PATIENT'S BEDSIDE, SPEAKING WITH PATIENT'S DAUGHTER (NEAL).
[2016-10-31] MEDS: HYDROcodone/APAP 7.5/325 MG 1 TAB PO PRN (13:59)
--- NOTE | 2016-10-31 15:27 | NUR ---
PATIENT REFUSED TO TAKE THE BENADRYL, I EXPLAINED TO THE PATIENT THE MEDICATION WAS ORDERED FOR THE ITCHINESS SHE WAS COMPLAINING ABOUT, PT STATED SHE WAS NOT ITCHY AND WAS NOT GOING TO TAKE ANY PILLS.
--- NOTE | 2016-10-31 15:30 | NUR ---
PT PULLED OUT IV, CATHETER TIP IS INTACT.
[2016-10-31] MEDS: NACL 0.9% 1,000 ML IV SCH (16:40)
--- NOTE | 2016-10-31 17:04 | NUR ---
PT IS RESTING IN BED, PT IS REFUSING TO HAVE HER BLOOD PRESSURE AND BLOOD GLUCOSE CHECKED.
--- NOTE | 2016-10-31 18:35 | NUR ---
PT STABLE UPON DISCHARGE, ID WRIST BAND REMOVED ACCOMPANIED BY TRANSPORT.
== END 2016-10-31 18:35 | DRG 871 ==
LOC: MED 17:15 → MTU 21:18
PROVIDERS: ADMIT Family Medicine; ATTEND Family Medicine
PROC: 2W3AX1Z Immobilization of Right Upper Arm using Splint (ICD-10-PCS; principal; 2016-10-27)
DX: A41.9 Sepsis, unspecified organism (principal); N17.0 Acute kidney failure with tubular necrosis; I63.9 Cerebral infarction, unspecified; E43 Unspecified severe protein-calorie malnutrition; G93.41 Metabolic encephalopathy; D68.59 Other primary thrombophilia; I50.43 Acute on chronic combined systolic (congestive) and diastolic (congestive) heart failure; E87.0 Hyperosmolality and hypernatremia; N18.4 Chronic kidney disease, stage 4 (severe); N39.0 Urinary tract infection, site not specified; I13.0 Hypertensive heart and chronic kidney disease with heart failure and stage 1 through stage 4 chronic kidney disease, or unspecified chronic kidney disease; S42.201A Unspecified fracture of upper end of right humerus, initial encounter for closed fracture; E11.51 Type 2 diabetes mellitus with diabetic peripheral angiopathy without gangrene; E86.0 Dehydration; E11.65 Type 2 diabetes mellitus with hyperglycemia; D64.9 Anemia, unspecified; E87.5 Hyperkalemia; K21.9 Gastro-esophageal reflux disease without esophagitis; E02 Subclinical iodine-deficiency hypothyroidism; E88.09 Other disorders of plasma-protein metabolism, not elsewhere classified; E66.9 Obesity, unspecified; E11.22 Type 2 diabetes mellitus with diabetic chronic kidney disease; E83.39 Other disorders of phosphorus metabolism; E83.51 Hypocalcemia; Z83.3 Family history of diabetes mellitus; Z91.013 Allergy to seafood; Y92.89 Other specified places as the place of occurrence of the external cause; Y99.8 Other external cause status; Z87.442 Personal history of urinary calculi; Z68.39 Body mass index [BMI] 39.0-39.9, adult; Z79.4 Long term (current) use of insulin; Z98.41 Cataract extraction status, right eye; Z98.42 Cataract extraction status, left eye; Z99.2 Dependence on renal dialysis; Z88.0 Allergy status to penicillin; W01.0XXA Fall on same level from slipping, tripping and stumbling without subsequent striking against object, initial encounter; Y93.01 Activity, walking, marching and hiking
CPT/HCPCS: 29105; 36415; 70450; 71010; 73030; 76705; 76770; 80048; 80053; 81001; 82140; 82150; 82607; 82728; 82746; 82948; 83036; 83540; 83605; 83690; 83735; 83880; 84100; 84439; 84443; 84484; 84550; 85025; 85045; 85610; 85730; 87040; 87081; 87086; 87186; 93005; 93880; 93925; 93970; 94640; 96361; 96365; 96375; 97110; 97116; 97140; 97530; 99285; C9113; J0696; J2060; J2270; J2405; J7030; J7060; J7620; Q0092; Q0163